=== PATIENT | male | born 1965 | race Caucasian/White ===

== ENCOUNTER 2017-12-25 09:54 | Day surgery (SDC) | payer BC, OTHER ==
[~2017-12-25] VITALS: Ht 188 cm; Wt 98.8 kg
[2017-12-25] MEDS ORDERED: IOHEXOL 350 MG/ML 100 ML BTL (for Cath Lab) OTHER ONE (09:55)
[2017-12-25 10:38] VITALS: BP 159/102; PULSE 87; RESP 18; TEMP 98.1; O2SAT 99
[2017-12-25] MEDS ORDERED: ECASA81 PO (10:46)
[2017-12-25] MEDS ORDERED: ENAL20TA PO (10:46)
[2017-12-25] MEDS ORDERED: NITR1SUB3 SL (10:46)
[2017-12-25] MEDS ORDERED: ATEN25TA PO (10:46)
[2017-12-25] MEDS ORDERED: OMEP10SU PO (10:46)
[2017-12-25] MEDS ORDERED: DILT1TAB2 PO (10:46)
[2017-12-25 10:57] LABS: BASOPHIL # 0.1 TH/MM3 (0-0.2); BASOPHIL % 0.8 % (0.0-2.0); EOSINOPHIL # 0.1 TH/MM3 (0-0.4); EOSINOPHIL % 2.2 % (0.0-4.0); HEMATOCRIT 45.2 % (39.0-51.0); HEMOGLOBIN 15.8 GM/DL (13.0-17.0); LYMPH % 21.6 % (9.0-44.0); LYMPHOCYTE # 1.4 TH/MM3 (1.0-4.8); MEAN CELL VOLUME 92.6 FL (80.0-100.0); MEAN CORPUSCULAR HEMOGLOBIN 32.5 PG (27.0-34.0); MEAN CORPUSCULAR HGB CONC 35.1 % (32.0-36.0); MEAN PLATELET VOLUME 7.8 FL (7.0-11.0); MONO % 12.2 % (0.0-8.0); MONOCYTE # 0.8 TH/MM3 (0-0.9); NEUT % 63.2 % (16.0-70.0); PLATELET COUNT 231 TH/MM3 (150-450); RED BLOOD COUNT 4.88 MIL/MM3 (4.50-5.90); WHITE BLOOD COUNT 6.3 TH/MM3 (4.0-11.0)
[2017-12-25 11:07] LABS: PROTHROMBIN TIME - PATIENT 10.4 SEC (9.8-11.6)
[2017-12-25 11:33] LABS: BICARBONATE 23.7 MEQ/L (21.0-32.0); CALCIUM 9.5 MG/DL (8.5-10.1); CREATININE 1.11 MG/DL (0.60-1.30)
[2017-12-25] MEDS ORDERED: NS 1000P @30 MLS/HR (KVO) IV SCH (11:45)
[2017-12-25] MEDS ORDERED: HEPARIN-NS/PF FLUSH BAG 2,000 ML IV FLUSH ONE ×2 (12:21→14:01)
[2017-12-25] MEDS ORDERED: MIDAZOLAM HCL 2 MG/2 ML VIAL ONE ×3 (12:54→14:31)
[2017-12-25] MEDS ORDERED: ONDANSETRON HCL 4 MG/2 ML VIAL ONE (13:24)
[2017-12-25] MEDS ORDERED: CLOPIDOGREL 300 MG TAB ONE (13:51)
[2017-12-25] MEDS ORDERED: STERILE WATER FOR INJECTION 10 ML VIAL ONE (13:51)
[2017-12-25] MEDS ORDERED: CANGRELOR TETRASODIUM 50,000 MCG VIAL ONE (13:51)
--- NOTE | 2017-12-25 15:07 | CATHPROC ---
PATHSENSORS HIS Report Study Information Study Number Admission Scheduled Start Study Start [id number] Dec 25 2017 9:54AM 12/25/2017 Dec 25 2017 11:51AM Study Type [place] Service Left/Possible PCI Cardiac Catheterization Admit Source Facility Department Other [facility] - Extension Course Counselor Physician and Clinical Staff Initial Gio Nunez Gas Mask Assembler Antonio Hamm,RN Recorder Tiffany RubinPURSE SEINING HAND Recorder Kizzy Nielsen ,RT(R) Scrub Andrea Mcwilliams,RT(R) Procedures Performed Procedure Location (Site) Vessel Name Angiogram LV LV Ventricle Coronary Angiograms LCA Left Coronary L Heart Cath LV Gram-hand inj. LV LV Ventricle Equipment Time Test Designer Description Size Mfg Part Number Used/Scraped TRANSDUCER, TRUWAVE [id number] 11:53 [employer] * Used W/STOCKCOCK *[id number] INTRODUCER SET, 11:53 [employer] FR 5 [id number] *[id number] Used MICROPUNCTURE, STIFFENED 538-476 *[id number] 538-420 *[id number] 538-422 *[id number] 538-424 *[id number] 538-453S *[id number] 11:53 [employer], CCL CUSTOM * Used *[id number] 11:53 [employer] PACER PEN, SKIN DUAL W/ RULER * Used *[id number] 11:53 [employer] WIRE, 3MMJ .035 180CM 180CM Used *[id number] PROBE COVER, STERILE [id number] 11:53 [employer] MEDICAL * Used ULTRASOUND W/ GEL *[id number] 11:53 [employer] MANIFOLD, 4 PORT * Used *[id number] 11:53 [employer] OMNIPAQUE, 350 MG, 150ML 150ML [id number] Used [id number] 11:53 [employer] MEDICAL BLANKET,WARM AIR CCL * Used *[id number] 11:53 [employer] MEDICAL SHEATH, FR4 TERUMO (10CM) FR 4 Used *[id number] History: Current Medications Medication Dosage/Unit Route Frequency Last Date/Time Taken VASOTEC CARDIZEM Beta Wan ASA NTG SL History: Allergies Allergy Reaction nebivolol History: Risk Factors Family History of Hypertension Dyslipidemia Previous [place] Previous Heart Failure Premature CAD Yes No No No No Prior Valve Prior PCI Prior CABG Surgery No No No Cerebrovascular Peripheral Artery Chronic Lung On Dialysis Diabetes Disease Disease Disease No No No No No History: Symptoms/Diagnosis Selection Items Chest pain SOB History: Stress Tests Stress or Imaging Studies Performed Yes Standard Exercise Stress Test No Stress Echo No Stress Test SPECT Stress Test SPECT Result Yes Negative Stress Test CMR No Cardiac CTA Coronary Calcium Score No No History: Other Disease Selection Items Gerd Labs Hgb (g/dl) Hct (%) WBC (l/cumm) Platelets (thousands) 11.60-17.00 35.00-51.00 4.00-11.00 150.00-450.00 15.0 45 6.3 231 Glucose (mg/dl) BUN (mg/dl) Creatinine (mg/dl) BUN:Creatinine (1:x) 74.00-106.00 7.00-18.00 0.50-1.30 10.00-20.00 109 17 1.1 15.5 Na (meq/l) K (meq/l) 136.00-145.00 3.50-5.10 141 3.9 INR (PTT:PT) 0.90-1.10 1 CPK-MB (ng/ML) 0.50-3.60 Not Drawn Medication Medication Total Dose (Bolus/Oral) Medication Total Dosage/Unit 1% XYLOCAINE 10 mL FENTANYL 100 mcg VERSED 4 mg Medications (Bolus/Oral) Medication Time Given Dosage/Unit Administered By Reason 1% XYLOCAINE 12/25/2017 2:22:59 PM 10 mL Gio Joseph 10 mL 1% XYLOCAINE given in lab by Gio Joseph in Right Groin via Subcutaneous. Ordered by Gio Crow. VERSED 12/25/2017 2:24:21 PM 2 mg Antonio Hamm 2 mg VERSED given in lab by Antonio Hamm RN in Left Antecubital via Peripheral IV. Ordered by Gio Fabian. FENTANYL 12/25/2017 2:24:32 PM 50 mcg Antonio Hamm 50 mcg FENTANYL given in lab by Antonio Hamm, FERNANDO in Left Antecubital via Peripheral IV. Ordered by Gio Joseph. VERSED 12/25/2017 2:33:15 PM 1 mg Antonio Hamm 1 mg VERSED given in lab by Antonio Hamm RN in Left Antecubital via Peripheral IV. Ordered by Gio Fabian. FENTANYL 12/25/2017 2:33:22 PM 25 mcg Antonio Hamm 25 mcg FENTANYL given in lab by Antonio Hamm RN in Left Antecubital via Peripheral IV. Ordered by Gio Joseph. VERSED 12/25/2017 2:39:10 PM 1 mg Antonio Hamm 1 mg VERSED given in lab by Antonio Hamm RN in Left Antecubital via Peripheral IV. Ordered by Gio Fabian. FENTANYL 12/25/2017 2:39:14 PM 25 mcg Antonio Hamm 25 mcg FENTANYL given in lab by Antonio Hamm RN in Left Antecubital via Peripheral IV. Ordered by Gio Joseph. Medication (Drip) Medication Time Given Dosage/Unit Concentration/Unit Diluent (ml) Solution IV Solutions 12/25/2017 2:07:40 PM 50 mL (IV) NaCl .9 Patient arrived on IV Solutions in Left Antecubital via Peripheral IV. Pump/Drip Flow using NaCl .9. Initial Case Assessment Cardiovascular HR NIBP Chest Pain 79 138/88 0 Edema Present Skin color Skin None Normal Warm Dry Circulatory - Right Pulses Dorsalis Pedis Femoral 2 3 Scale (0,1,2,3,4,d) Circulatory - Left Pulses Dorsalis Pedis Femoral 2 3 Scale (0,1,2,3,4,d) Circulatory - Lower Extremities Color Lower Right Color Lower Left Normal Normal Neurological State Oriented to time-place- Alert Moves all extremities person Respiration - General Respiration Rate SpO2 (%) (B/min) 9 99 Chronological Log Time Study Chronological Log 13:56:49 Patient arrived via Bed. 13:56:52 Patient Name, D.O.B, / Armband Verified By R.N. 13:56:53 Consent signed by the physician and the patient and verified by the Extension Course Counselor staff. 13:56:54 Pre-op and post- op instructions given; patient acknowledges understanding of instructions. 13:56:55 Verbal Stimulation=2 Physical Stimulation=2 Airway=2 Respiration=2 TOTAL=8. (0=absent, 1=li mited, 2=present) 13:56:58 Presedation assessment performed by Extension Course Counselor RN. 13:57:00 Patient has been NPO for More than 6Hrs. 13:57:01 Skin Breakdown- none per patient 13:57:02 Wolf Prominences Protected 14:05:00 MD arrived. 14:07:40 A # 20 IV was noted in the Antecubital (left). Grade = 0 14:07:40 Patient arrived on IV Solutions in Left Antecubital via Peripheral IV. Pump/Drip Flow using NaCl .9. 14:07:41 History and physical on the chart or being dictated. Assessment: Initial Case, HR=79 BPM, OLWO=827/88 mmhg, Chest Pain=0, Edema=None, Color=Normal, Skin = Warm, Dry Right Pulses: Garett Ped=2, Femoral=3 Left Pulses: Garett Ped=2, Femoral=3 14:07:42 Lower Right Extremities: Color=Normal Lower Left Extremities: Color=Normal Neurological: State=Alert, Ox3, RUBI Respiration: Resp=9 B/min, SpO2=99 % Vitals capture started with the following parameters, Patient=Adult, Interval=5 min, Initial Pr rfpruc=262 mmHg, 14:09:04 Deflation Rate=5 mmHg, Cuff placed on Right Arm 14:09:34 Reference ECG taken 14:09:43 HR=93 bpm, FRSF=346/88 mmhg, SpO2=99.0 %, Resp=9 B/min, Pain=0, Isidro=10, Rizo=2 14:12:52 Bilateral groins prepped with 2% chlorhexidine, and draped after a 3 minute waiting time. 14:14:44 HR=79 bpm, UQMP=552/84 mmhg, OeE2=976.0 %, Resp=11 B/min, Pain=0, Isidro=10, Rizo=2 14:16:37 Pressure channel 1 zeroed. 14:19:43 HR=79 bpm, WEGN=740/91 mmhg, VqC3=142.0 %, Resp=8 B/min, Pain=0, Isidro=10, Rizo=2 Time Out. Correct patient, correct procedure, correct physician, power injector not loaded with contrast with surgical 14:21:37 team present. Time Out Concurred by MD and individual staff in procedure. 14:22:19 Case Start 10 mL 1% XYLOCAINE given in lab by Gio Joseph in Right Groin via Subcutaneous. Ordered by Opal 14:22:59 Gio. 14:24:21 2 mg VERSED given in lab by Antonio Hamm, FERNANDO in Left Antecubital via Peripheral IV. Order ed by Gio Joseph. 14:24:26 Access site was Right Femoral Artery. 14:24:32 50 mcg FENTANYL given in lab by Antonio Hamm, FERNANDO in Left Antecubital via Peripheral IV. O rdered by Gio Joseph. A INTRODUCER SET, MICROPUNCTURE, STIFFENED FR 5 was advanced into the Fem Art (right) using the 14:24:34 Percutaneous technique. 14:24:44 HR=83 bpm, WJUB=043/88 mmhg, SpO2=97.0 %, Resp=18 B/min, Pain=0, Isidro=10, Rizo=2 A SHEATH, FR4 TERUMO (10CM) FR 4 was exchanged in the Fem Art (right). This was necessary in or robles to 14:24:48 accomodate a larger catheter. A JL 4.0 INFINITI CATHETER FR 4 was advanced over a wire. OMNIPAQUE, 350 MG, 150ML 150ML was us ed for 14:25:17 injections. Recorded Pressure: Ao, HR=79, Condition=Condition 1 14:26:49 (Aorta) Ao 114/75/92 14:27:46 Catheter was removed A JL 6.0 INFINITI CATHETER FR 4 was advanced over a wire. OMNIPAQUE, 350 MG, 150ML 150ML was us ed for 14:27:51 injections. 14:29:43 HR=73 bpm, DLSZ=763/78 mmhg, SpO2=94.0 %, Resp=20 B/min, Pain=0, Isidro=10, Rizo=2 After removing the current catheter a JL 5.0 INFINITI CATHETER FR 4 was advanced over a WIRE, 3 MMJ .035 180CM 14:30:11 180CM. 14:31:48 The LCA was injected and visualized at various angles. OMNIPAQUE, 350 MG, 150ML 150ML used . 14:33:15 1 mg VERSED given in lab by Antonio Hamm, FERNANDO in Left Antecubital via Peripheral IV. Order ed by Gio Joseph. 14:33:22 25 mcg FENTANYL given in lab by Antonio Hamm RN in Left Antecubital via Peripheral IV. O rdered by Gio Joseph. 14:34:42 HR=78 bpm, VFIG=358/79 mmhg, SpO2=97.0 %, Resp=21 B/min, Pain=0, Isidro=10, Rizo=2 14:37:42 Catheter was removed A 3DRC INFINITI CATHETER FR 4 was advanced over a wire. OMNIPAQUE, 350 MG, 150ML 150ML was used for 14:38:09 injections. 14:39:10 1 mg VERSED given in lab by Antonio Hamm RN in Left Antecubital via Peripheral IV. Order ed by Gio Joseph. 14:39:14 25 mcg FENTANYL given in lab by Antonio Hamm RN in Left Antecubital via Peripheral IV. O rdered by Gio Joseph. 14:39:45 HR=67 bpm, CTDM=619/74 mmhg, SpO2=92.0 %, Resp=33 B/min, Pain=0, Isidro=10, Rizo=2 14:40:17 Catheter was removed After removing the current catheter a PIGTAIL ANG. INFINITI CATHETER FR 4 was advanced over a WIRE, 3MMJ .035 14:41:36 180CM 180CM. Recorded Pressure: LV, HR=83, Condition=Condition 1 14:42:02 (Left Ventricle) LV 99/2/7 14:42:50 The LV was manually injected with 10 cc's and visualized. OMNIPAQUE, 350 MG, 150ML 150ML u sed. 14:44:40 HR=74 bpm, SFUN=879/79 mmhg, SpO2=92.0 %, Resp=25 B/min, Pain=0, Isidro=10, Rizo=2 14:45:33 The LV was injected at 8 cc/sec for a total of 32. OMNIPAQUE, 350 MG, 150ML 150ML used. Recorded Pressure: LV, Ao, HR=74, Condition=Condition 1 14:46:24 (Left Ventricle) LV 104/3/7, (Aorta) Ao 117/74/92 14:47:00 Catheter was removed 14:47:04 Case End 14:48:24 Sheath removed; pressure applied to access site. 14:48:28 Sterile dressing applied to site 14:48:29 No case complications noted. 14:48:30 Cine recording checked. 14:48:31 Bedside Report will be given. 14:48:36 A Left Heart Cath was performed. 14:49:41 HR=84 bpm, BEQV=182/83 mmhg, SpO2=96.0 %, Resp=20 B/min, Pain=0, Isidro=10, Rizo=2 14:54:40 HR=83 bpm, DDJR=948/82 mmhg, SpO2=94.0 %, Resp=16 B/min, Pain=0, Isidro=10, Rizo=2 14:59:43 HR=83 bpm, CVUT=243/81 mmhg, SpO2=92.0 %, Resp=16 B/min, Pain=0, Isidro=10, Rizo=2 15:00:17 Vitals capture stopped. 15:01:10 Patient moved to [facility] End Study - Contrast Media Used In Study Contrast Total Opened (mL) Total Used (mL) Total Wasted (mL) Omnipaque 80 80 0 End Study - Maximum Contrast Load Max Contrast Load (mL) 445.5 End Study - Radiation Exposure Fluoro Time (minutes) 4.3 End Study - Sheaths Sheaths Pulled By Sheath Hold Time (min) Andrea Mcwilliams 10 End Study - Patient Disposition Complications Transferred To Interventional Outcome No Telemetry Bed No attempt made
--- NOTE | 2017-12-25 15:21 | MP ---
cc: Gio Joseph MD,Aldo Read DATE OF OPERATION: 12/25/2017 INDICATION FOR CATHETERIZATION: Unstable angina. CONSENT: Full informed consent was obtained prior to procedure. Risks of , bleeding, myocardial infarction, perforation, aspiration or other unforeseen complications reviewed. The patient appeared to fully understand the risks. SEDATION: Patient was given sedation with fentanyl and Versed. PROCEDURE SUMMARY: Patient was draped and prepped in the usual manner. Right femoral artery was entered using a micropuncture technique with ultrasound via the 4-[place]i sheath left and right catheters were used to intubate the left and right coronaries. Pigtail catheter to left ventricle and left ventriculography was carried out. At the end of the catheterization procedure, all catheters and sheaths were removed and pressure applied until good hemostasis achieved and patient returned to the holding area in stable condition. FINDINGS: 1. Hemodynamics: The aortic pressure was 117/34 with a mean of 92. The left ventricular pressure was 104 with the left ventricular end diastolic pressure of 7. There was no evidence of significant gradient on pullback across the LV outflow tract and aortic valve. 2. Left ventriculogram: The overall left ventricular ejection fraction was 60%. There was no evidence of significant mitral regurgitation or mural thrombus. 3. Coronaries: The left main was large and free of significant disease. The left anterior descending artery was a large vessel. There was evidence of very tortuous vessels around the LAD, circumflex and ramus. The LAD showed no evidence of significant disease. The circumflex outflow was medium and free of significant disease. The right revealed a medium sized intermediate ramus vessel that was also free of significant disease. The right coronary artery was a large dominant vessel. Large posterior descending artery, medium 1st posterolateral branch and large 2nd posterolateral branch all free of significant disease. CONCLUSION: Normal left ventricular function. No significant coronary artery disease. PLAN: Medical management. MD AMY Roa/FABY , 02:56 PM , 03:20 PM
== END 2017-12-25 18:50 | disposition home or self-care (01) ==
LOC: HDOC 09:54 → HDIC 09:55 → HDOC 18:50
PROVIDERS: ATTEND Internal Medicine Cardiovascular Disease
DX: R07.9 Chest pain, unspecified (principal); I10 Essential (primary) hypertension; I77.810 Thoracic aortic ectasia; K21.9 Gastro-esophageal reflux disease without esophagitis; Z79.82 Long term (current) use of aspirin
CPT/HCPCS: 80048; 85025; 85610; 93458; 99152; 99153; C1769; C1893; J1644; J2250; J2405; J3010; C9460; Q9967